=== PATIENT | male | born 1970 | race Caucasian/White ===

== ENCOUNTER 2021-01-25 15:55 | Inpatient (IN) | payer OTHER ==
[2021-01-25 18:16] VITALS: BMI 25.7
[2021-01-25] MEDS ORDERED: MAG HYDROX/AL HYDROX/SIMETH 30 ML UNIT-DOSE CUP PO PRN (19:40)
[2021-01-25] MEDS ORDERED: BISMUTH SUBSALICYLATE 524 MG/30 ML PO PRN (19:40)
[2021-01-25] MEDS ORDERED: ONDANSETRON *ODT* 4 MG TABLET SL PRN (19:40)
[2021-01-25] MEDS ORDERED: MENTHOL/PHENOL 1 EACH UD MM PRN (19:40)
[2021-01-25] MEDS ORDERED: METHOCARBAMOL 500 MG TABLET PO PRN (19:40)
[2021-01-25] MEDS ORDERED: MAGNESIUM CITRATE 300 ML BOTTLE PO PRN (19:40)
[2021-01-25] MEDS ORDERED: ACETAMINOPHEN 325 MG TABLET (FP) PO PRN ×2 (19:40)
[2021-01-25] MEDS ORDERED: IBUPROFEN 400 MG TABLET (FP) PO PRN (19:40)
[2021-01-25] MEDS ORDERED: MAGNESIUM HYDROX 2400MG/30ML ORAL SUSPENSION 30 ML CUP PO PRN (19:40)
[2021-01-25] MEDS: MELATONIN 5 MG TABLETS PO SCH (21:56)
[2021-01-25] MEDS: THIAMINE HCL 100 MG TABLET (FP) PO SCH (21:56)
[2021-01-26] MEDS ORDERED: PRENATAL VITAMINS W/ FOLIC ACID TABLET (FP) PO SCH (10:00)
[2021-01-26] MEDS ORDERED: FLU VACC QS2021-22(6MOS UP)/PF 60 MCG/0.5 ML SYRINGE IM ONE (13:00)
[2021-01-26] MEDS: MELATONIN 5 MG TABLETS PO SCH (22:13)
[2021-01-26] MEDS: THIAMINE HCL 100 MG TABLET (FP) PO SCH (22:13)
[2021-01-27 09:20] VITALS: BP 103/66; PULSE 73; TEMP 97.9
== END 2021-01-27 11:08 | disposition home or self-care (01) | DRG 775 ==
LOC: EDBD 15:55 → YASAS 15:55 → Y6N 20:59
PROVIDERS: ADMIT Allergy & Immunology; ATTEND Allergy & Immunology
PROC: HZ2ZZZZ Detoxification Services for Substance Abuse Treatment (ICD-10-PCS; principal; 2021-01-25)
DX: F10.230 Alcohol dependence with withdrawal, uncomplicated (principal); F19.24 Other psychoactive substance dependence with psychoactive substance-induced mood disorder; F34.1 Dysthymic disorder; R26.89 Other abnormalities of gait and mobility; Z86.73 Personal history of transient ischemic attack (TIA), and cerebral infarction without residual deficits; Z56.0 Unemployment, unspecified; Z59.02 Unsheltered homelessness
CPT/HCPCS: 90686; 93005; 93010; C9803; U0003; U0005